=== PATIENT | female | born 1985 | race Caucasian/White ===

== ENCOUNTER 2018-04-15 05:46 | Inpatient (IN) | payer OTHER ==
[2018-04-15] MEDS ORDERED: CEFAZOLIN 1 GM INJ (07:00)
[2018-04-15] MEDS ORDERED: DESFLURANE 15 MIN (07:00)
[2018-04-15 07:22] LABS: ADD MAN DIFF? NO
[2018-04-15 07:28] LABS: WHITE BLOOD COUNT 8.6 10^3/ul (4.8-10.8)
[2018-04-15 07:28] LABS: BASOPHIL # 0.1 10^3/ul (0.0-0.1); EOSINOPHILS # 0.7 10^3/ul (0.0-0.5); EOSINOPHILS % 8.1 % (0.0-7.0); HEMATOCRIT 36.2 % (37.0-47.0); HEMOGLOBIN 12.4 g/dl (12.0-16.0); LYMPHOCYTES % 34.5 % (15.0-51.0); MEAN CORPUSCULAR HEMOGLOBIN 29.4 pg (29.0-33.0); MEAN CORPUSCULAR HGB CONC 34.3 g/dl (32.0-37.0); MEAN CORPUSCULAR VOLUME 85.8 fl (82.0-101.0); MEAN PLATELET VOLUME 8.8 fl (7.4-10.4); MONOCYTE # 0.7 10^3/ul (0.3-0.9); MONOCYTES % 8.2 % (0.0-11.0); NEUTROPHIL # 4.1 10^3/ul (1.6-7.5); PLATELET COUNT 370 10^3/UL (140-415); RED BLOOD COUNT 4.22 10^6/ul (4.20-5.40); RED CELL DISTRIBUTION WIDTH 12.8 % (11.5-14.5)
[2018-04-15 07:30] LABS: INR 0.87; PROTIME 11.9 Sec (11.9-14.9); PT RATIO 0.9
[2018-04-15 07:34] LABS: ALANINE AMINOTRANSFERASE 20 IU/L (13-69); ALBUMIN 4.4 g/dl (3.3-4.9); ALBUMIN/GLOBULIN RATIO 1.18; ALKALINE PHOSPHATASE 62 IU/L (42-121); ANION GAP 13 (5-13); ASPARTATE AMINO TRANSFERASE 26 IU/L (15-46); BILIRUBIN,INDIRECT 0.1 mg/dl (0-1.1); BILIRUBIN,TOTAL 0.1 mg/dl (0.2-1.3); BLOOD UREA NITROGEN 12 mg/dl (7-20); CALCIUM 9.6 mg/dl (8.4-10.2); CARBON DIOXIDE 25 mmol/L (21-31); CHLORIDE 103 mmol/L (97-110); Estimated GFR > 60 mL/min (>60); GLUCOSE 87 mg/dl (70-220); POTASSIUM 3.8 mmol/L (3.5-5.1); SODIUM 141 mmol/L (135-144); TOTAL PROTEIN 8.1 g/dl (6.1-8.1)
[2018-04-15] MEDS ORDERED: LIDOCAINE 1% (MDV) 20 ML INJ (07:38)
[2018-04-15] MEDS ORDERED: FENTAnyl 50 MCG/ML VIAL ×2 (07:38→07:40)
[2018-04-15] MEDS ORDERED: MIDAZOLAM 1 MG/ML 2 ML INJ (07:38)
[2018-04-15] MEDS ORDERED: PROPOFOL 20 ML (07:38)
[2018-04-15] MEDS ORDERED: ROCURONIUM 50 MG INJ (07:38)
[2018-04-15] MEDS ORDERED: morphine SULFATE/PF (10 MG/10 ML) INJ (07:40)
[2018-04-15] MEDS ORDERED: ONDANSETRON 4 MG INJ (08:17)
[2018-04-15] MEDS ORDERED: DEXAMETHASONE 4 MG/ML 5 ML INJ (08:17)
[2018-04-15] MEDS ORDERED: FAMOTIDINE 20 MG INJ (08:17)
[2018-04-15] MEDS ORDERED: ROPIVACAINE 0.5 % 30 ML VIAL (09:53)
[2018-04-15] MEDS ORDERED: NEOSTIGMINE 3 MG/3 ML SYRINGE (10:06)
[2018-04-15] MEDS ORDERED: GLYCOPYRROLATE 0.4 MG INJ (10:06)
[2018-04-15] MEDS ORDERED: DIPHENHYDRAMINE 50 MG INJ IV ×2 (10:30→12:00)
[2018-04-15] MEDS ORDERED: ONDANSETRON 4 MG INJ IV ×3 (10:30→14:19)
[2018-04-15] MEDS ORDERED: PROCHLORPERAZINE 10 MG INJ IV (10:30)
[2018-04-15] MEDS ORDERED: KETOROLAC 30 MG INJ IV ×3 (10:30→14:19)
[2018-04-15] MEDS ORDERED: HYDROmorphONE 0.5 MG/0.5 ML SYG IV ×3 (10:30→11:00)
[2018-04-15] MEDS ORDERED: MEPERIDINE 25 MG INJ IV (10:30)
[2018-04-15] MEDS ORDERED: HYDROCODONE/APAP (5/325) TAB PO (10:30)
[2018-04-15] MEDS: KETOROLAC 30 MG INJ IV (10:52)
[2018-04-15] MEDS ORDERED: NALOXONE (0.4 MG/ML) INJ IV (11:00)
[2018-04-15] MEDS ORDERED: ZOLPIDEM 5 MG TAB PO (11:00)
[2018-04-15] MEDS: HYDROmorphONE 1 MG/5 ML IV SYRINGE IV ×6 (11:03→14:43)
[2018-04-15] MEDS: ONDANSETRON 4 MG INJ IV (11:04)
[2018-04-15] MEDS: LACTATED RINGER'S 1,000 ML IV ×2 (11:08→20:14)
[2018-04-15] MEDS: DIPHENHYDRAMINE 50 MG INJ IV (16:44)
[2018-04-15] MEDS: HYDROmorphONE 0.5 MG/0.5 ML SYG IV (19:11)
[2018-04-16] MEDS: DIPHENHYDRAMINE 50 MG INJ IV (00:27)
[2018-04-16] MEDS: HYDROmorphONE 0.5 MG/0.5 ML SYG IV ×2 (02:16→09:23)
[2018-04-16 05:30] LABS: ADD MAN DIFF? NO
[2018-04-16 05:50] LABS: WHITE BLOOD COUNT 14.1 10^3/ul (4.8-10.8)
[2018-04-16 05:50] LABS: BASOPHILS % 0.1 % (0.0-2.0); EOSINOPHILS % 0.1 % (0.0-7.0); HEMATOCRIT 29.6 % (37.0-47.0); HEMOGLOBIN 9.7 g/dl (12.0-16.0); LYMPHOCYTES # 1.8 10^3/ul (0.8-2.9); LYMPHOCYTES % 12.8 % (15.0-51.0); MEAN CORPUSCULAR HEMOGLOBIN 29.2 pg (29.0-33.0); MEAN CORPUSCULAR HGB CONC 32.8 g/dl (32.0-37.0); MEAN CORPUSCULAR VOLUME 89.2 fl (82.0-101.0); MEAN PLATELET VOLUME 9.3 fl (7.4-10.4); MONOCYTE # 1.1 10^3/ul (0.3-0.9); MONOCYTES % 7.5 % (0.0-11.0); NEUTROPHIL # 11.2 10^3/ul (1.6-7.5); NEUTROPHILS % 78.9 % (39.0-77.0); PLATELET COUNT 316 10^3/UL (140-415); RED BLOOD COUNT 3.32 10^6/ul (4.20-5.40); RED CELL DISTRIBUTION WIDTH 13.2 % (11.5-14.5)
[2018-04-16] MEDS: LACTATED RINGER'S 1,000 ML IV ×2 (06:45→16:14)
[2018-04-16] MEDS ORDERED: ONDANSETRON 4 MG INJ IV (10:59)
[2018-04-16] MEDS ORDERED: DIPHENHYDRAMINE 50 MG INJ IV (10:59)
[2018-04-16] MEDS: HYDROCODONE/APAP (5/325) TAB PO ×2 (13:14→18:58)
[2018-04-16] MEDS: KETOROLAC 30 MG INJ IV ×2 (15:28→22:12)
[2018-04-17] MEDS: HYDROCODONE/APAP (5/325) TAB PO ×2 (01:57→08:00)
[2018-04-17] MEDS: LACTATED RINGER'S 1,000 ML IV (02:14)
[2018-04-17] MEDS: KETOROLAC 30 MG INJ IV ×2 (05:28→11:27)
== END 2018-04-17 12:30 | disposition home or self-care (01) | DRG 743 ==
LOC: REC 05:46 → MS1 15:11
PROC: 0UB00ZZ Excision of Right Ovary, Open Approach (ICD-10-PCS; principal; 2018-04-15 07:30)
PROC: 0DNU0ZZ Release Omentum, Open Approach (ICD-10-PCS; 2018-04-15 07:30)
DX: N80.1 Endometriosis of ovary (principal); N73.6 Female pelvic peritoneal adhesions (postinfective); N80.9 Endometriosis, unspecified
CPT/HCPCS: 80053; 85025; 85610; 85730; 86850; 86900; 86901; 87086; 88305